=== PATIENT | male | born 2000 | race Caucasian/White ===

== ENCOUNTER → 2021-09-08 | Outpatient (REF) | LOC: M LABSMTC 10:14 | PROVIDERS: ATTEND Pediatrics | DX: Z11.52 Encounter for screening for COVID-19 (principal) ==

== ENCOUNTER 2022-12-26 21:22 | Emergency (ER) | payer BC ==
[~2022-12-26] VITALS: Ht 185.4 cm; Wt 150.0 kg
[2022-12-26] MEDS ORDERED: CITA20TA7 PO (21:33)
[2022-12-26 21:57] LABS: HEMATOCRIT 46.3 % (42.0-52.0); HEMOGLOBIN 16.2 g/dl (13.5-17.5); MEAN CORPUSCULAR HEMOGLOBIN 30.2 pg (27.0-33.0); MEAN CORPUSCULAR VOLUME 86.4 fl (80.0-96.0); PLATELET COUNT, AUTOMATED 309 10^3/uL (150-450); RED BLOOD COUNT 5.36 10^6/uL (4.30-6.10); WHITE BLOOD COUNT 8.9 10^3/uL (4.0-10.0)
[2022-12-26 22:19] LABS: ETHYL ALCOHOL (ETHANOL) < 0.003 % (0.000-0.010)
[2022-12-26 22:21] LABS: ALKALINE PHOSPHATASE 90 U/L (46-116); ALT/SGPT 69 U/L (7.0-40); AST/SGOT 33 U/L (<34); BILIRUBIN,DIRECT 0.1 MG/DL (<0.4); BILIRUBIN,TOTAL 0.4 MG/DL (0.3-1.2); BLOOD UREA NITROGEN 9 MG/DL (9-23); CALCIUM LEVEL 9.3 MG/DL (8.5-10.1); CARBON DIOXIDE LEVEL 30 MMOL/L (20-31); CHLORIDE LEVEL 105 MMOL/L (98-107); CREATININE FOR GFR 1.03 MG/DL (0.70-1.30); GLOMERULAR FILTRATION RATE > 60.0 (>60); GLUCOSE, FASTING 110 MG/DL (60-100); SALICYLATE LEVEL < 3.0 MG/DL (<30); SODIUM LEVEL 143 MMOL/L (136-145); TOTAL PROTEIN 7.8 G/DL (5.7-8.2)
[2022-12-26 22:23] LABS: THYROID STIMULATING HORMONE 2.706 uIU/ML (0.55-4.78)
[2022-12-26 22:30] LABS: AMPHETAMINES LEVEL URINE NEGATIVE (NEGATIVE); BARBITURATES URINE NEGATIVE (NEGATIVE); BENZODIAZEPINES URINE NEGATIVE (NEGATIVE); COCAINE METABOLITE URINE NEGATIVE (NEGATIVE); METHADONE URINE NEGATIVE (NEGATIVE); OPIATES URINE NEGATIVE (NEGATIVE); PHENCYCLIDINE URINE NEGATIVE (NEGATIVE)
[2022-12-26 22:33] LABS: CANNABINOIDS URINE POSITIVE (NEGATIVE)
[2022-12-26] MEDS ORDERED: LABETALOL 100MG/20ML VIAL IV STA (23:01)
[2022-12-27] MEDS ORDERED: HOME MED LIST COMPLETE! XX SCH (00:05)
[2022-12-27] MEDS ORDERED: hydrALAZINE 20MG/ML 1ML VIAL IV ONE (00:10)
[2022-12-27] MEDS ORDERED: med rec comment (00:34)
[2022-12-27] MEDS ORDERED: amLODIPine 5 MG TAB PO ONE (00:55)
[2022-12-27 01:00] VITALS: TEMP 97.7
[2022-12-27 01:18] VITALS: BP 158/76
[2022-12-27 02:15] VITALS: BP 153/94; O2SAT 97
[2022-12-27] MEDS ORDERED: AMLO25TA PO (02:16)
== END 2022-12-27 02:43 | disposition home or self-care (01) ==
LOC: M ED 21:22
DX: R41.82 Altered mental status, unspecified (principal); F32.A Depression, unspecified; I10 Essential (primary) hypertension; F41.9 Anxiety disorder, unspecified; U07.1 COVID-19; Z79.899 Other long term (current) drug therapy
CPT/HCPCS: 71046; 80048; 80076; 80143; 80307; 82077; 84443; 85027; 87635; 93005; 93041; 94760; 96374; 96375; 99285; J0360; J1920

== ENCOUNTER 2022-12-31 17:12 | Inpatient (IN) | payer BC ==
[~2022-12-31] VITALS: Ht 185.4 cm; Wt 150.0 kg
[~2022-12-31 17:12] MED LIST: AMLO25TA PO; CITA20TA7 PO; med rec comment
[2022-12-31] MEDS ORDERED: LORazepam 2 MG TAB PO STA (17:45)
[2022-12-31] MEDS ORDERED: amLODIPine 5 MG TAB PO ONE (17:50)
[2022-12-31] MEDS ORDERED: LORazepam 1 MG TAB PO STA (18:22)
[2022-12-31] MEDS ORDERED: TRAZ-252 PO (18:22)
[2022-12-31] MEDS ORDERED: HOME MED LIST COMPLETE! XX SCH (18:25)
[2022-12-31 18:56] LABS: HEMATOCRIT 45.6 % (42.0-52.0); HEMOGLOBIN 16.2 g/dl (13.5-17.5); MEAN CORPUSCULAR HEMOGLOBIN 30.3 pg (27.0-33.0); MEAN CORPUSCULAR HGB CONC 35.5 g/dl (32.0-36.5); MEAN CORPUSCULAR VOLUME 85.2 fl (80.0-96.0); PLATELET COUNT, AUTOMATED 337 10^3/uL (150-450); RED BLOOD COUNT 5.35 10^6/uL (4.30-6.10); WHITE BLOOD COUNT 9.8 10^3/uL (4.0-10.0)
[2022-12-31 19:17] LABS: ETHYL ALCOHOL (ETHANOL) < 0.003 % (0.000-0.010)
[2022-12-31 19:19] LABS: ALBUMIN 3.9 G/DL (3.2-5.2); ALKALINE PHOSPHATASE 81 U/L (46-116); ALT/SGPT 74 U/L (7.0-40); AST/SGOT 30 U/L (<34); BILIRUBIN,DIRECT 0.1 MG/DL (<0.4); BILIRUBIN,TOTAL 0.4 MG/DL (0.3-1.2); BLOOD UREA NITROGEN 9 MG/DL (9-23); CALCIUM LEVEL 9.6 MG/DL (8.5-10.1); CARBON DIOXIDE LEVEL 27 MMOL/L (20-31); CHLORIDE LEVEL 105 MMOL/L (98-107); CREATININE FOR GFR 0.76 MG/DL (0.70-1.30); GLOMERULAR FILTRATION RATE > 60.0 (>60); GLUCOSE, FASTING 133 MG/DL (60-100); POTASSIUM SERUM 3.4 MMOL/L (3.5-5.1); SALICYLATE LEVEL < 3.0 MG/DL (<30); SODIUM LEVEL 141 MMOL/L (136-145); TOTAL PROTEIN 7.3 G/DL (5.7-8.2)
[2022-12-31 19:21] LABS: THYROID STIMULATING HORMONE 1.454 uIU/ML (0.55-4.78)
[2022-12-31 19:27] LABS: AMPHETAMINES LEVEL URINE NEGATIVE (NEGATIVE); BARBITURATES URINE NEGATIVE (NEGATIVE); BENZODIAZEPINES URINE NEGATIVE (NEGATIVE); COCAINE METABOLITE URINE NEGATIVE (NEGATIVE); METHADONE URINE NEGATIVE (NEGATIVE); OPIATES URINE NEGATIVE (NEGATIVE); PHENCYCLIDINE URINE NEGATIVE (NEGATIVE)
[2022-12-31 19:34] LABS: CANNABINOIDS URINE POSITIVE (NEGATIVE)
[2022-12-31] MEDS ORDERED: MOM 30ML SUSPENSION UDC PO PRN (21:35)
[2022-12-31] MEDS ORDERED: MAALOX 30 ML SUSP *UDC PO PRN (21:35)
[2022-12-31] MEDS ORDERED: IBUPROFEN 400MG TAB PO PRN (21:35)
[2022-12-31] MEDS ORDERED: OLANZapine ORAL DISINTEGRATING TAB 5MG PO PRN (21:35)
[2022-12-31] MEDS ORDERED: ACETAMINOPHEN TAB 650MG DOSE (2X325MG) PO PRN (21:35)
[2022-12-31] MEDS ORDERED: MIDAZOLAM INJ 2MG/2ML VIAL IM ONE (21:50)
[2022-12-31] MEDS ORDERED: diphenhydrAMINE 50MG/ML VIAL IM ONE (21:50)
[2022-12-31] MEDS ORDERED: HALOPERIDOL 5MG/ML 1ML VIAL IM ONE (21:50)
[2023-01-01] MEDS: traZODone 50 MG TAB PO PRN ×2 (02:03→20:14)
[2023-01-01 06:54] VITALS: BP 132/80; TEMP 98.2; O2SAT 99
[2023-01-01] MEDS: CitaloPRAM (CeleXA) 20 MG TAB PO SCH (10:23)
[2023-01-01 18:28] VITALS: BP 140/90; TEMP 98.5; O2SAT 100
[2023-01-01] MEDS: diphenhydrAMINE 25MG CAP PO PRN (22:08)
[2023-01-02 06:33] VITALS: BP 154/110; TEMP 97.4; O2SAT 98
[2023-01-02] MEDS: diphenhydrAMINE 25MG CAP PO PRN (06:43)
[2023-01-02 07:14] VITALS: BP 156/104
[2023-01-02] MEDS: CitaloPRAM (CeleXA) 20 MG TAB PO SCH (08:36)
[2023-01-02 08:40] VITALS: BP 144/104
[2023-01-02] MEDS ORDERED: CITA20TA7 PO (09:53)
[2023-01-02] MEDS ORDERED: AMLO25TA PO (09:53)
[2023-01-02] MEDS ORDERED: TRAZ-252 PO (09:53)
== END 2023-01-02 11:45 | disposition home or self-care (01) | DRG 753 ==
LOC: M ED 17:12 → M ED INP 21:33 → M PSY 01-01 01:59
PROVIDERS: ADMIT Student in an Organized Health Care Education/Training Program; ATTEND Student in an Organized Health Care Education/Training Program
DX: F31.81 Bipolar II disorder (principal); F12.10 Cannabis abuse, uncomplicated; F19.11 Other psychoactive substance abuse, in remission; R45.850 Homicidal ideations; Z56.0 Unemployment, unspecified; Z79.899 Other long term (current) drug therapy; Z81.8 Family history of other mental and behavioral disorders; Z81.3 Family history of other psychoactive substance abuse and dependence; Z81.1 Family history of alcohol abuse and dependence